=== PATIENT | female | born 2000 | race African-American/Black ===

== ENCOUNTER 2018-05-18 18:48 | Emergency (ER) | payer SELFPAY | END 2018-05-18 20:59 | disposition home or self-care (01) | LOC: D.ER 18:48 | DX: A08.4 Viral intestinal infection, unspecified (principal) ==

== ENCOUNTER 2019-06-02 13:14 | Emergency (ER) | payer MEDICAID ==
[~2019-06-02] VITALS: Ht 172.7 cm; Wt 63.6 kg
[~2019-06-02 13:14] MED LIST: ZOFRAN ODT4 MG/UDTAB PO
[2019-06-02 13:26] VITALS: Ht 172.7 cm; Wt 63.6 kg
[2019-06-02 14:25] LABS: ANION GAP 19.2 mmol/L (8-16); CALCIUM 9.4 mg/dL (8.5-10.1); CARBON DIOXIDE 22.6 mmol/L (21.0-32.0); CREATININE - SERUM 1.1 mg/dL (0.6-1.3); POTASSIUM - SERUM 3.8 mmol/L (3.5-5.1)
[2019-06-02 14:31] LABS: ALBUMIN 4.2 g/dL (3.4-5.0); BILIRUBIN - TOTAL 0.51 mg/dL (0.2-1.3); PROTEIN - SERUM 8.5 g/dL (6.4-8.2)
[2019-06-02 14:55] LABS: BASOPHILS 0.1 % (0-2); EOSINOPHILS 0.1 % (0-7); HEMATOCRIT 46.3 % (36.0-48.0); HEMOGLOBIN 16.1 g/dL (12-16); IMMATURE GRANULOCYTES 0.3 % (0-5); LYMPHOCYTES 2.6 % (15-50); MCH 30.6 pg (26.0-34.0); MCHC 34.8 g/dL (31.0-37.0); NEUTROPHILS 92.9 % (40-80); PLATELET COUNT 186 10x3/uL (130-400); RBC 5.26 10x6/uL (4.00-5.40); WBC 15.3 10x3/uL (4.8-10.8)
[2019-06-02] MEDS ORDERED: ONDANSETRON ODT8 MG PO (15:48)
[2019-06-02 17:34] VITALS: BP 116/51
== END 2019-06-02 17:35 | disposition home or self-care (01) ==
LOC: D.ER 13:14 → EDSEX 13:14 → D.ER 17:35
PROVIDERS: Family Medicine
DX: K52.9 Noninfective gastroenteritis and colitis, unspecified (principal); R11.2 Nausea with vomiting, unspecified; J45.909 Unspecified asthma, uncomplicated

== ENCOUNTER 2020-03-03 19:33 | Emergency (ER) | payer SELFPAY ==
[~2020-03-03] VITALS: Ht 172.7 cm; Wt 65.9 kg
[~2020-03-03 19:33] MED LIST changes: +ONDANSETRON ODT8 MG PO
[2020-03-03 19:40] VITALS: Ht 172.7 cm; Wt 65.9 kg
[2020-03-03] MEDS ORDERED: CLINDAMYCIN HC150 MG PO (21:37)
[2020-03-03 22:26] VITALS: BP 133/97
== END 2020-03-03 22:25 | disposition home or self-care (01) ==
LOC: D.ER 19:33
DX: L02.411 Cutaneous abscess of right axilla (principal); J44.9 Chronic obstructive pulmonary disease, unspecified